=== PATIENT | male | born 1935 | race Caucasian/White ===

== ENCOUNTER 2016-06-27 14:52 | Inpatient (IN) | payer OTHER ==
--- NOTE | ~2016-06-27 | CR72 ---
[facility] A Service of [facility] RADIOLOGY TEXT RESULTS PATIENT: YADI PADILLA LOCATION: [facility] 473-01 : 33 UNIT #: [id number] AGE: [address]: Sana Chou MD SEX: M ORDER DR: [id number] [facility] [address]. [place], [place] [address] [id number] E MR#: [id number] Acc #: [id number] NAME: YADI PADILLA. : 1935 SEX: M STUDY DATE/TIME: 06/27/2016 16:08 UNIT: [facility] ROOM: STUDY DESCRIPTION: CR Chest Single View Portable Attending Physician: Tian Patterson M.D. Ordering Physician: Tian Patterson M.D. Primary Care Physician: Calvin Loco M.D. MEDICAL IMAGING REPORT This report is preliminary unless electronic signature is present EXAM AP portable chest. DATE 06/27/2016 HISTORY 80-year-old male with syncope and tachycardia today. History of colon cancer and atrial fibrillation. Hypertension. COMPARISON PA and lateral chest, 11/05/2012. FINDINGS There is a moderate cardiac enlargement which appears stable. Pulmonary vascular distribution is within normal limits. No acute airspace disease is identified. No pleural effusion or pneumothorax. Surgical changes of the right humerus. Mild midthoracic dextroscoliotic curvature. Chronic-appearing flattening and/or resorption of the humeral head with heterotopic ossification of the inferior margin of the glenohumeral joint. IMPRESSION 1. Stable moderate cardiac enlargement. No acute chest findings. 2. Chronic-appearing flattening or resorption of the humeral head. ORIF changes of the right humerus. 3. Mild mid thoracic dextroscoliosis. Dictated by... Cora Flynn M.D. THIS IS AN ELECTRONICALLY VERIFIED REPORT [facility] A Service of [facility] RADIOLOGY TEXT RESULTS PATIENT: YADI PADILLA LOCATION: [facility] 473-01 : 33 UNIT #: [id number] AGE: [address]: Sana Chou MD SEX: M ORDER DR: Cora Flynn M.D. at 06/29/2016 7:14 AM ROGER/amy TD: 06/27/2016 17:27 JOB #: [id number] MEDICAL IMAGING REPORT Page 1 of 1 COPY
--- NOTE | ~2016-06-27 | HP ---
Unit #: [id number] #: [id number] Patient: YADI PADILLA [id number] [address] [place], [place] [address] [id number] E MR#: [id number] NAME: YADI PADILLA ROOM: Age: 80 Sex: M Admission Date: 06/27/2016 : 1935 Attending Physician: Tian Patterson M.D. Primary Care Physician: Calvin Loco M.D. HISTORY AND PHYSICAL CHIEF COMPLAINT Fall. HISTORY OF PRESENT ILLNESS The patient is an 80-year-old male with a history of a hypertension, colon cancer status post resection and afib on anticoagulation, brought to the emergency room status post fall. The patient lives with his who has a history of dementia. The patient last spoke with the family last night at 6:00 p.m. and the patient was found on the floor at the kitchen this afternoon at 1:15 p.m. The patient was disoriented and was talking about the (1) . The patient was also found to have blood around the mouth. The patient was brought to the emergency room for further evaluation. The patient does not remember the events. PAST MEDICAL HISTORY History of a hypertension, atrial fibrillation, hyperlipidemia, colon cancer. PAST SURGICAL HISTORY He has had a partial colectomy and status post open reduction and internal fixation of the right proximal humerus fracture. MEDICATIONS He is on home Coumadin, niacin, metoprolol, fish oil. ALLERGIES No known drug allergies. SOCIAL HISTORY The patient drinks alcohol two to four times a month and has no tobacco usage, retired. FAMILY HISTORY Positive for hypertension and cancer. REVIEW OF SYSTEMS Fourteen-point review of symptoms performed and only pertinent positive findings described above, remaining are negative. PHYSICAL EXAMINATION GENERAL APPEARANCE: On examination the patient is lying on a bed not in acute distress. VITAL SIGNS: Temperature 97.9, pulse 127, respirations 17, blood pressure 115/65, sating 98% at room air. Unit #: [id number] #: [id number] Patient: YADI PADILLA HEENT: Head atraumatic and normocephalic. Pupils equal, round and reacting to light and accommodation. Extraocular movements are intact. Dry mucous membranes. NECK: Supple. LUNGS: Decreased air entry at the bases. HEART: Regular rate and rhythm. ABDOMEN: Soft, positive bowel sounds. EXTREMITIES: Patient has multiple bruises on the left upper extremity and right upper extremity and on the back. NEUROLOGIC: Alert, awake, oriented and positive for confusion. DIAGNOSTIC STUDIES IMAGING: CT of the head shows no acute intracranial findings. Chest x-ray shows no acute findings. LABORATORY DATA: Glucose 195, BUN 22, creatinine 1.7, sodium 139, potassium 2.6, chloride 105, bicarb 24, calcium 8.4, albumin 3.3, direct bilirubin 0.4, AST 59, ALT 30, alkaline phosphatase 38, CK is 1807, lactic acid is 2, PT is 103, INR is 9.1, PTT is 54.9, WBC 16.5, hemoglobin 10.3, hematocrit 29.6, platelets 177, neutrophils 89% and UA is pending. ASSESSMENT 1. Status post fall. 2. Coumadin toxicity. 3. Rhabdomyolysis. 4. Hypokalemia. PLAN Plan to admit the patient as an inpatient with the telemetry. Patient will receive the IV fluids with a sepsis protocol and initiate the sepsis protocol with the blood cultures and repeat the lactic acid. Follow the UA to initiate the antibiotics if it is positive for the infection. Replace the potassium per protocol and GI has already been seeing the patient and recommends the Protonix 40 b.i.d. and further recommendations will follow as more lab results are available. Dictated by Nancy Buitrago TD: 06/27/2016 18:44 JOB #: [id number] Unit #: [id number] #: [id number] Patient: YADI PADILLA HISTORY AND PHYSICAL Page 1 of 1 X X HISTORY AND PHYSICAL
--- NOTE | ~2016-06-27 | CT71 ---
[facility] A Service of [facility] RADIOLOGY TEXT RESULTS PATIENT: YADI PADILLA LOCATION: [facility] : 33 UNIT #: [id number] AGE: [address]: MITCHELL COVINGTON MD SEX: M ORDER DR: [id number] [address] [address] [id number] E MR#: [id number] #: [id number] NAME: YADI PADILLA. : 1935 SEX: M STUDY DATE/TIME: 06/27/2016 16:39 UNIT: [facility] ROOM: STUDY DESCRIPTION: CT Head Wo Contrast Attending Physician: Tian Patterson M.D. Ordering Physician: Tian Patterson M.D. Primary Care Physician: Calvin Loco M.D. MEDICAL IMAGING REPORT This report is preliminary unless electronic signature is present EXAM CT head 06/27/2016 INDICATIONS Altered mental status. Weakness. Found down. Confusion. TECHNIQUE CT head without contrast. This CT exam was performed with one or more of the following radiation dose reduction techniques: automatic exposure control, adjustment of mA and/or kV according to patient size, and iterative reconstruction. COMPARISON None available. FINDINGS There is no acute intracranial hemorrhage, mass lesion, or acute infarct. There is generalized atrophy and chronic small vessel changes. The ventricles and basilar cisterns are within normal limits. No extraaxial collections. No acute osseous abnormalities. IMPRESSION 1. No acute intracranial findings. 2. Atrophy and chronic small vessel changes. Dictated by... Laci Mccarthy M.D. THIS IS AN ELECTRONICALLY VERIFIED REPORT Laci Mccarthy M.D. at 06/27/2016 9:45 PM [facility] A Service of [facility] RADIOLOGY TEXT RESULTS PATIENT: YADI PADILLA LOCATION: [facility] : 33 UNIT #: [id number] AGE: [address]: MITCHELL COVINGTON MD SEX: M ORDER DR: Tasha TD: 06/27/2016 18:01 JOB #: [id number] MEDICAL IMAGING REPORT Page 1 of 1 COPY
--- NOTE | ~2016-06-27 | CO ---
Unit #: [id number] #: [id number] Patient: YADI SHIN [id number] [address] [place], [place] [address] [id number] I MR#: [id number] NAME: YADI SHIN ROOM: [facility] Age: 80 Sex: M Admission Date: 06/27/2016 : 1935 Attending Physician: Sana Chou M.D. Primary Care Physician: Calvin Loco M.D. Consultation Date: 06/29/2016 CONSULTATION REPORT PRIMARY CARE PHYSICIAN Calvin Loco M.D. REASON FOR CONSULTATION Leukocytosis, please evaluate. HISTORY OF PRESENT ILLNESS Mr. Yadi Shin is [id number] with a history of hypertension, on long-term anticoagulation with warfarin, because of atrial fibrillation, who was found down at home. He apparently fell hitting his head on concrete and spent the night on the floor before his house has to be broken in to find him on the floor and bring him into the emergency room. His has advanced dementia and he was the primary caregiver and apparently had padlocked the front and back doors. Mr. Shin was disoriented at the time of admission, and again remains somewhat confused and unable to remember the events. 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 PAST SURGICAL HISTORY Partial colectomy and proximal humeral fracture. ALLERGIES He has no known medication allergies. FAMILY HISTORY According to him, no history of blood disorders. SOCIAL HISTORY Drinks alcohol occasionally. He is . Lives with his , who has Alzheimer dementia. Does not smoke. REVIEW OF SYSTEMS A 14-point review of systems is attempted, but incomplete, because of the patient's mild effusion. EYES: Negative. EARS, NOSE, MOUTH, AND THROAT: Negative. CARDIOVASCULAR: Negative. RESPIRATORY: Negative. GASTROINTESTINAL: Negative. GENITOURINARY: With dysuria and urinary frequency. Unit #: [id number] #: [id number] Patient: YADI SHIN NEUROLOGIC: Has forgotten events surrounding his fall. PSYCHIATRIC: Negative. ENDOCRINE: Negative. ALLERGIC/LYMPHATIC: Negative. SKIN: Bruising of both arms which he attributes to his fall. PHYSICAL EXAMINATION GENERAL: He is a pleasant elderly man, lying in bed, in no distress. Awake, alert, and oriented x3. VITAL SIGNS: Temperature 97.8, pulse rate 96, respiratory rate is 18, blood pressure 107/66, O2 saturation 94% on room air. HEENT: Shows pupils are equal and reactive well to light. No pallor or icterus. Mucous membranes are moist. NECK: Without adenopathy, JVD, or thyromegaly. CARDIOVASCULAR: First and second heart sounds are heard and regular. No murmurs, gallops, or rubs. LUNGS: Chest expansion is symmetric. Bilateral equal air entry with normal breath sounds. ABDOMEN: Soft and nontender. Bowel sounds are present. Lower midline incision is noted. EXTREMITIES: Warm with good pulses. He has extensive bruising of both arms probably related to his fall. NEUROLOGIC: He is awake, alert, oriented x3 without any focal findings. SKIN: Bruises as discussed. PSYCHIATRIC: Normal affect. DIAGNOSTIC STUDIES LABORATORY RESULTS: White count 17.2, hemoglobin is 8.7, platelet count is 147,000. MCV is normal at 94.9. Protime is 16.1, INR 1.5. UA shows nitrites are negative. Protein is trace. There is 2+ blood with 25 to 50 rbc's per high-power field and 2 to 5 wbc's. Blood cultures negative. Lactic acid was 2 at the time of admission and is now 1.5. Iron is 35, TIBC is 188, percent saturation is 19%. Vitamin B12 is 874. Hemoglobin A1c was 5.7. Basic metabolic panel on admission showed a potassium of 2.6, BUN is 22, creatinine is 1.7, eGFR of 36.8, total protein is 6.1 with albumin of 3.3, bilirubin is 0.4. IMAGING STUDIES: Chest x-ray, one view, shows stable moderate cardiac enlargement. ASSESSMENT AND PLAN Mr. Yadi Shin is an 80 years old with a history of chronic atrial fibrillation, on warfarin admitted after a fall at home. He now has leukocytosis, moderately severe normocytic anemia without any clear evidence of recent blood loss. He is scheduled for an endoscopy later today. His UA is slightly abnormal and urine cultures has not been done given his some confusion. I would recommend a urine culture which may also explain his leukocytosis. RECOMMENDATION 1. Completion of anemia workup with retic count, LDH, haptoglobin level, and a ferritin level. 2. Monitor CBCs with differential. We will review the peripheral smear. 3. Urine culture. 4. Will await the results of endoscopy. 5. We will repeat a CMP. Thank you for allowing me to participate in his care. Unit #: [id number] #: [id number] Patient: YADI SHIN Dictated by... Nancy Goel/ivett TD: 07/01/2016 05:00 JOB #: [id number] CONSULTATION REPORT Page 1 of 1 X John Morales MD X CONSULTATION REPORT
--- NOTE | ~2016-06-27 | EKG ---
PATIENT: YADI PADILLA UNIT #: [id number] Ventricular Rate: 118 BPM Atrial Rate: 129 BPM QRS Duration: 100 ms Q-T Interval: 326 ms QTC Calculation(Bezet): 456 ms Calculated R [place]: -8 degrees Calculated T [place]: -152 degrees Diagnosis Line: Atrial fibrillation with rapid ventricular Diagnosis Line: response with premature ventricular or aberrantly Diagnosis Line: conducted complexes Diagnosis Line: ST and T wave abnormality, consider lateral ischemia Diagnosis Line: Abnormal ECG Diagnosis Line: When compared with ECG of 12-NOV-2012 09:23, Diagnosis Line: T wave inversion now evident in Anterior leads Diagnosis Line: Confirmed by TONE CHAMBERS MD ([id number]) on 06/28/2016 Diagnosis Line: 10:38:05 AM INTERPRETING MD: TRISH JOSEPH
--- NOTE | ~2016-06-27 | DS ---
Unit #: [id number] #: [id number] Patient: YADI SHIN [id number] [facility]. [place], [place] [address] [id number] I MR#: [id number] NAME: YADI SHIN. ROOM: 473 Age: 80 Sex: M Admission Date: 06/27/2016 : 1935 Discharge Date: 06/30/2016 Attending Physician: Sana Chou M.D. Primary Care Physician: Calvin Loco M.D. DISCHARGE SUMMARY PRINCIPAL DIAGNOSES 1. Coumadin toxicity. 2. Severe candidal esophagitis. 3. Status post fall with severe deconditioning. 4. Acute blood loss anemia, likely secondary to patient's esophagitis in combination with extensive bruising with Coumadin toxicity. 5. Hypokalemia. 6. Toxic metabolic encephalopathy. 7. Mild rhabdomyolysis. 8. Acute kidney injury, prerenal in combination with rhabdomyolysis. Discharge creatinine 1. 9. 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 10. Iron deficiency anemia. 11. Chronic atrial fibrillation, rate controlled and maintained on anticoagulation. 12. Buttock pressure ulcer present upon admission. 13. Memory loss, moderate. 14. Obesity. 15. Moderate protein malnutrition. 16. Hypertension. 17. Severe deconditioning. CONSULTANTS 1. Dr. Yin, gastroenterology. 2. Dr. Morales, oncology. PROCEDURE EGD on June 29, 2016, with severe Aurelia esophagitis. Normal stomach and mild duodenitis noted. DIAGNOSTIC STUDIES IMAGING: Chest x-ray on June 27, 2016, with cardiac enlargement, flattening, and reabsorption of humeral head on the right noted. CT of the head without contrast on June 27, 2016, with atrophy and chronic small vessel change. X-ray of left forearm on June 27, 2016, with swelling and osteoarthritis. CLINICAL HISTORY AND HOSPITAL COURSE Mr. Shin is an 80-year-old, male brought to the emergency department by his family after being found down in his kitchen at home confused. Please refer to H and P for further details. In the emergency Unit #: [id number] #: [id number] Patient: YADI SHIN department, patient underwent CT scan of the head, which was unremarkable for any acute findings. However, he was found to have a leukocytosis upon presentation and creatinine was elevated at 1.7. Patient was subsequently admitted. In regards to patient's elevated creatinine, he was placed on IV fluids and, on day of discharge, creatinine is now down to 1. Encouraged p.o. intake. Workup for patient's confusion was initially negative for any source of infection. Leukocytosis continued to worsen despite empiric antibiotics given pending cultures, which, again, ultimately were negative. Dr. Morales was consulted. However, patient underwent EGD, as outlined below. Leukocytosis is now resolved after being placed on nystatin. When patient presented to the emergency department, he had blood present around his mouth, which was concerning for, perhaps, trauma versus GI bleed versus other. Dr. Yin was consulted and, ultimately, patient underwent EGD with findings of severe confluent esophagitis. He has been placed on nystatin and, since that time, he has had improvement in his swallowing and leukocytosis has resolved. I did discuss with patient's daughter this at home and he had been choking at home and avoiding eating due to pain. Again, will treat as outlined below. Patient was found to be Coumadin toxic upon presentation with an INR greater than 9. Coumadin was held and INR at this time is now subtherapeutic at 1.3. I am going to place him on bridging Lovenox in addition to Coumadin and Lovenox may be discontinued when INR is greater than or equal to 2. Patient was also found to be significantly hypokalemic at home. He is on HCTZ and, perhaps, this is the culprit. I will maintain him on a low-dose potassium supplement upon discharge and potassium can be followed up. Patient has also been maintained on his losartan/hydrochlorothiazide during hospitalization with blood pressures running in the 90s. I am going to cut the pill in half and blood pressure can be followed up at rehab. Patient was also found to have a pressure ulcer present upon admission and this was seen by wound care with instructions for care as outlined below. Patient is significantly weak and will be discharged to rehab later today. I will also note patient was significantly disoriented throughout hospitalization and did not know place or date or year. I have discussed this with patient's daughter and she does admit he has some short-term memory loss at home. However, I suspect his memory loss is perhaps more advanced than noted by family and this should further be discussed at rehab prior to discharge. DISCHARGE CONDITION Stable. DISCHARGE STATUS Discharged to (1) . DISCHARGE MEDICATIONS Unit #: [id number] #: [id number] Patient: YADI SHIN 1. Tylenol 500 mg p.o. daily. 2. Losartan HCTZ 100/25 mg 1/2 tablet p.o. daily. 3. Coumadin 3 mg p.o. daily with goal INR of 2-3. 4. Nystatin swish and swallow 5 mL p.o. t.i.d. for 10 days. 5. Lovenox 100 mg subcu. q.12 hours to stop when INR greater than or equal to 2. 6. Metoprolol tartrate 25 mg daily. 7. Ferrous gluconate 324 mg daily. 8. [place] 3 1000 mg 2 tablets b.i.d. 9. Protonix 40 mg b.i.d. 10. Klor-Con 20 mg p.o. daily. 11. Niacin ER 1000 mg b.i.d. DISCHARGE INSTRUCTIONS 1. Patient was instructed to follow a heart healthy diet. He should follow a soft diet for the next several days until esophagitis has improved. 2. He can increase activity as tolerated under the care of PT and OT. 3. In regards to his sacral wound, he should be up in chair no longer than 30 minutes and should be out of bed with all meals. 4. Wounds should be cleansed with foam cleanser and apply Mepitel One to the right buttock wound b.i.d. and p.r.n. It should be cut to fit and waffle cushion to chair when out of bed. 5. FOLLOWUP: A. Patient will follow up with Dr. Yin in approximately four weeks. B. Patient will follow up with his primary care provider, Dr. Loco, upon discharge from rehab. TIME SPENT ON DISCHARGE Thirty-seven minutes. Dictated by... Sana Chou M.D. TORIE/ruddy TD: 06/30/2016 09:24 JOB #: [id number] DISCHARGE SUMMARY Page 1 of 1 X Sana Chou MD X DISCHARGE SUMMARY
--- NOTE | ~2016-06-27 | CO ---
Unit #: [id number] #: [id number] Patient: YADI SHIN [id number] [facility]. [place], [place] [address] [id number] I MR#: [id number] NAME: YADI SHIN. ROOM: 473 Age: 80 Sex: M Admission Date: 06/27/2016 : 1935 Attending Physician: Carlos Gallardo M.D. Primary Care Physician: Calvin Loco M.D. Consultation Date: 06/27/2016 CONSULTATION REPORT REASON FOR CONSULTATION Possible hematemesis. HISTORY OF PRESENTING ILLNESS Mr. Shin is an 80-year-old gentleman. He was found down after blacking out at his home. Not sure of the length of the time he was out. When he was found, he had some blood around his mouth, possible hematemesis. Patient denies any history of ulcers or previous scoping. At this time he is awake and alert, seems very weak however. He denies any abdominal pain. He does have dysphagia to solids off and on and has choked on food several times also. Bowel movements have been normal, without any black stool or bleeding. He does have a history of colon cancer, had partial colon resection about 10 years ago, no details available. He has not had any surveillance colonoscopy afterwards. PAST MEDICAL HISTORY Past medical history is significant for history of coronary artery disease, atrial fibrillation on chronic anticoagulation, colon cancer status post colectomy. HOME MEDICATIONS Medications at home included Coumadin, fish oil, niacin and metoprolol. SOCIAL HISTORY Nonsmoker, does drink alcohol socially. REVIEW OF SYSTEMS Complete 10-point review of systems is done which is unremarkable other than as mentioned above. PHYSICAL EXAMINATION VITAL SIGNS: Stable. Temperature 97.9, pulse 127, respirations 17, blood pressure 115/65. HEENT: Pupils equally round and reactive. Sclerae anicteric. Oral mucosa moist. NECK: No JVD. No lymphadenopathy. CHEST: A few scattered rhonchi. CARDIOVASCULAR SYSTEM: Regular rate and rhythm. No murmurs. ABDOMEN: Soft, nontender and nondistended. EXTREMITIES: Without cyanosis, clubbing or edema. NEUROLOC: Neurologically intact. SKIN: Warm and dry. Does have a decub ulcer. Unit #: [id number] #: [id number] Patient: YADI SHIN DIAGNOSTIC STUDIES LABORATORY: Today hemoglobin of 10.3, other labs are pending at this time. ASSESSMENT AND PLAN 1. Patient with possible hematemesis and chronic dysphagia: Will need an upper endoscopy once stable from cardiopulmonary status. Will continue with PPI for now. 2. Anemia, no baseline available at this time. 3. Patient with a personal history of colon cancer, status post colectomy for over 10 years, has not had a surveillance colonoscopy: At this time will consider doing colonoscopy for evaluation in near future. Thank you, Dr. Gallardo, for this interesting consult. We will follow along. Dictated by... Nancy De Oliveira/danielle TD: 06/27/2016 22:59 JOB #: [id number] CONSULTATION REPORT Page 1 of 1 X Jose Armando Yin MD X CONSULTATION REPORT
--- NOTE | ~2016-06-27 | CR132 ---
[facility] A Service of [facility] RADIOLOGY TEXT RESULTS PATIENT: YADI PADILLA LOCATION: [facility] [id number] : 33 UNIT #: [id number] AGE: [address]: MITCHELL COVINGTON MD SEX: M ORDER DR: [id number] [facility] [address] [facility]. [place], [place] [address] [id number] E MR#: [id number] Acc #: [id number] NAME: YADI PADILLA. : 1935 SEX: M STUDY DATE/TIME: 06/27/2016 17:55 UNIT: [facility] ROOM: STUDY DESCRIPTION: CR Forearm 2 View Lt Attending Physician: Tian Patterson M.D. Ordering Physician: Ed Shaq Gutierrez M.D. Primary Care Physician: Calvin Loco M.D. MEDICAL IMAGING REPORT This report is preliminary unless electronic signature is present EXAM Left forearm. INDICATIONS Left forearm pain and swelling status post fall. FINDINGS 2 views of the left forearm without comparison. There is no acute fracture or dislocation. There is some soft tissue swelling over the midportion of the forearm. There is some arthritis in the wrist. Alignment at the elbow is anatomic. IMPRESSION 1. Mild soft tissue swelling over the mid forearm. 2. 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 Dictated by... Laci Mccarthy M.D. THIS IS AN ELECTRONICALLY VERIFIED REPORT Laci Mccarthy M.D. at 06/27/2016 9:46 PM ELIAN/maral TD: 06/27/2016 19:12 JOB #: [id number] MEDICAL IMAGING REPORT Page 1 of 1 COPY
--- NOTE | ~2016-06-27 | OR ---
Unit #: [id number] #: [id number] Patient: YADI PADILLA [id number] [address] [place], [place] [address] [id number] MR#: [id number] NAME: YADI PADILLA. ROOM: 473 Date of Procedure: 06/29/2016 Admission Date: 06/27/2016 Surgeon: Jose Armando Yin M.D. : 1935 Attending Physician: Sana Chou M.D. Primary Care Physician: Calvin Loco M.D. OPERATIVE REPORT PROCEDURE PERFORMED Esophagogastroduodenoscopy with biopsies. INDICATIONS FOR PROCEDURE The patient with significant dysphagia, also with drop in hemoglobin over the last few days significantly. MEDICATIONS Monitored anesthesia. POSTOPERATIVE FINDINGS 1. Severe Aurelia esophagitis. Biopsies taken. 2. Normal stomach. 3. Mild duodenitis. PLAN Continue PPI therapy. Start nystatin. Follow up on the pathology report. DESCRIPTION OF PROCEDURE The patient was explained of the procedure, risks, and benefits along with risks and benefits of anesthesia. He was brought to the endoscopy room. Propofol anesthesia was given. Bite block was placed. The scope was passed down the mouth into the esophagus, stomach, duodenum, and distal duodenum. Findings as described. Biopsies taken in the esophagus. Gently, the scope was pulled out. He tolerated it well. Dictated by... Nancy De Oliveira/ivett TD: 06/29/2016 23:01 JOB #: [id number] Unit #: [id number] #: [id number] Patient: YADI PADILLA OPERATIVE REPORT Page 1 of 1 X Jose Armando Yin MD X PROCEDURE OPERATIVE NOTE
[~2016-06-27 14:52] MED LIST: DOCU SOFT100 M1 PO; LORTAB 5/500 TA1 TA2 PO; LOSARTAN-HCTZ1 EAC3 PO; LOVAZA1 G PO; METOPROLOL SUCC50 MG PO; NIASPAN ER PO; OXYCODONE15 MG PO; WARFARIN PO
[2016-06-27 16:15] LABS: BASOPHIL% 0.2 % (0-2.5); HEMATOCRIT 29.6 % (38.0-50.0); HEMOGLOBIN 10.3 gm/dL (13.0-16.0); LYMPHOCYTE# 0.8 X10e3 (1.0-3.5); LYMPHOCYTE% 5.1 % (17.0-45.0); MEAN CELL VOLUME 92.5 FL (83-96); MEAN CORPUSCULAR HEMOGLOBIN 32.2 PG (28-34); MEAN CORPUSCULAR HGB CONC 34.8 g/dL (30-36); MEAN PLATELET VOLUME 7.1 FL (6.5-11.5); MONOCYTE# 0.9 X10e3 (0-1.0); MONOCYTE% 5.7 % (3.0-12.0); NEUTROPHIL# 14.7 X10e3 (1.5-7.1); PLATELET COUNT 177 X10e3 (140-420); RED CELL DISTRIBUTION WIDTH 13.2 % (11.0-15.5); WHITE BLOOD COUNT 16.5 X10e3 (4.0-10.5)
[2016-06-27 16:16] LABS: DIFF IND YES
[2016-06-27 16:31] LABS: PARTIAL THROMBOPLASTIN TIME 54.9 SECONDS (23.5-31.3)
[2016-06-27 16:39] LABS: PLATELET ESTIMATE NORMAL (NORMAL); RBC NORMAL YES
[2016-06-27 16:41] LABS: ALBUMIN SERUM 3.3 g/dL (3.5-5.0); BILIRUBIN, DIRECT 0.4 mg/dL (0.0-0.2); BILIRUBIN,TOTAL 1.4 mg/dL (0.2-2.0); BUN/CREATININE RATIO 12.94; CALCIUM SERUM 8.4 mg/dL (8.4-10.2); CREATININE SERUM 1.7 mg/dL (0.6-1.4); GLOM FILT RATE Estimated 36.8 mL/min (>60); PROTEIN TOTAL SERUM 6.1 g/dL (6.0-8.3)
[2016-06-27 17:08] LABS: INR 9.1
[2016-06-27 17:16] LABS: POTASSIUM 2.6 mmol/L (3.5-5.1)
[2016-06-27] MEDS ORDERED: PATIENT'S PHARMACY (17:25)
[2016-06-27] MEDS ORDERED: OMEGA 3 1,0001 EACH PO (17:30)
[2016-06-27] MEDS ORDERED: NIACIN ER1000 MG PO (17:30)
[2016-06-27] MEDS ORDERED: LOSARTAN-HCTZ1 EAC1 PO (17:30)
[2016-06-27] MEDS ORDERED: COUMADIN3 MG PO (17:31)
[2016-06-27] MEDS ORDERED: COUMADIN4 MG PO (17:31)
[2016-06-27] MEDS ORDERED: METOPROLOL TAR25 MG PO (17:32)
[2016-06-27] MEDS ORDERED: TYLENOL EXTRA500 M1 PO (17:38)
[2016-06-27 18:26] LABS: POC - CKMB 3.9 ng/mL (0.0-7.9); POC - TROPONIN <0.05 ng/mL (<=0.05)
[2016-06-28 03:39] LABS: BASOPHIL% 0.1 % (0-2.5); DIFF IND NO; HEMATOCRIT 28.5 % (38.0-50.0); HEMOGLOBIN 9.8 gm/dL (13.0-16.0); LYMPHOCYTE# 1.1 X10e3 (1.0-3.5); LYMPHOCYTE% 7.2 % (17.0-45.0); MEAN CORPUSCULAR HEMOGLOBIN 32.2 PG (28-34); MEAN CORPUSCULAR HGB CONC 34.3 g/dL (30-36); MEAN PLATELET VOLUME 7.3 FL (6.5-11.5); MONOCYTE# 0.8 X10e3 (0-1.0); MONOCYTE% 5.3 % (3.0-12.0); NEUTROPHIL# 13.2 X10e3 (1.5-7.1); NEUTROPHIL% 87.4 % (40-75); PLATELET COUNT 174 X10e3 (140-420); RED BLOOD COUNT 3.03 X10e (3.90-5.60); RED CELL DISTRIBUTION WIDTH 13.6 % (11.0-15.5); WHITE BLOOD COUNT 15.1 X10e3 (4.0-10.5)
[2016-06-28 04:07] LABS: INR 4.8
[2016-06-28 04:12] LABS: ALBUMIN SERUM 3.1 g/dL (3.5-5.0); BILIRUBIN,TOTAL 1.3 mg/dL (0.2-2.0); BUN/CREATININE RATIO 17.69; CREATININE SERUM 1.3 mg/dL (0.6-1.4); GLOM FILT RATE Estimated 50.8 mL/min (>60); MAGNESIUM 1.4 mg/dL (1.6-3.0); PROTEIN TOTAL SERUM 5.5 g/dL (6.0-8.3)
[2016-06-28 04:13] LABS: POTASSIUM 2.7 mmol/L (3.5-5.1)
[2016-06-28 08:40] LABS: IRON SERUM 35 ug/dL (45-182); TOTAL IRON BINDING CAPACITY 188 ug/dL (252-460); TRANSFERRIN 134 mg/dL (180-329); TRANSFERRIN SATURATION 19 % (20-50)
[2016-06-28 12:32] LABS: URINE SOURCE CLEAN CATCH
[2016-06-28 12:42] LABS: URINE APPEARANCE CLEAR; URINE BLOOD 2+ (NEG); URINE COLOR DK YELLOW; URINE GLUCOSE NEG (NEG); URINE KETONE NEG (NEG); URINE LEUKOCYTE ESTERASE NEG (NEG); URINE NITRATE NEG (NEG); URINE PROTEIN TRACE (NEG); URINE SPECIFIC GRAVITY 1.022 (1.003-1.035)
[2016-06-28 12:44] LABS: URBCS1 AUWI 25-50 /[HPF] (0-2); URINE BACTERIA AUWI NEG (NEGATIVE)
[2016-06-28 12:57] LABS: CULTURE INDICATED? NO; URINE BILIRUBIN NEG (NEG)
[2016-06-28 13:00] LABS: URINE SQUAMOUS EPITHELIAL CELL OCCAS /[HPF]
[2016-06-29 03:20] LABS: HEMOGLOBIN 8.7 gm/dL (13.0-16.0); MEAN CELL VOLUME 94.9 FL (83-96); MEAN CORPUSCULAR HGB CONC 33.7 g/dL (30-36); MEAN PLATELET VOLUME 7.7 FL (6.5-11.5); RED BLOOD COUNT 2.73 X10e (3.90-5.60); RED CELL DISTRIBUTION WIDTH 13.4 % (11.0-15.5); WHITE BLOOD COUNT 17.2 X10e3 (4.0-10.5)
[2016-06-29 03:23] LABS: INR 1.5
[2016-06-29 03:43] LABS: CALCIUM SERUM 8.3 mg/dL (8.4-10.2); CREATININE SERUM 1.3 mg/dL (0.6-1.4); GLOM FILT RATE Estimated 50.8 mL/min (>60); POTASSIUM 3.2 mmol/L (3.5-5.1)
[2016-06-29 03:45] LABS: PROTHROMBIN TIME (PATIENT) 16.1 SECONDS (9.6-11.5)
[2016-06-29 14:02] LABS: ALBUMIN SERUM 2.8 g/dL (3.5-5.0); BILIRUBIN,TOTAL 1.1 mg/dL (0.2-2.0); BUN/CREATININE RATIO 20.9; CALCIUM SERUM 8.5 mg/dL (8.4-10.2); CREATININE SERUM 1.1 mg/dL (0.6-1.4); GLOM FILT RATE Estimated 62.2 mL/min (>60); POTASSIUM 3.9 mmol/L (3.5-5.1); PROTEIN TOTAL SERUM 5.4 g/dL (6.0-8.3)
[2016-06-30 03:39] LABS: INR 1.3
[2016-06-30 03:42] LABS: BASOPHIL% 0.2 % (0-2.5); EOSINOPHIL# 0.1 X10e3 (0-0.7); EOSINOPHIL% 0.6 % (0.0-7.0); HEMATOCRIT 23.6 % (38.0-50.0); HEMOGLOBIN 8.1 gm/dL (13.0-16.0); LYMPHOCYTE# 1.4 X10e3 (1.0-3.5); LYMPHOCYTE% 13.9 % (17.0-45.0); MEAN CELL VOLUME 94.5 FL (83-96); MEAN CORPUSCULAR HEMOGLOBIN 32.6 PG (28-34); MEAN CORPUSCULAR HGB CONC 34.6 g/dL (30-36); MONOCYTE# 0.7 X10e3 (0-1.0); MONOCYTE% 6.8 % (3.0-12.0); NEUTROPHIL# 7.7 X10e3 (1.5-7.1); NEUTROPHIL% 78.5 % (40-75); PLATELET COUNT 139 X10e3 (140-420); RED BLOOD COUNT 2.49 X10e (3.90-5.60); RED CELL DISTRIBUTION WIDTH 13.5 % (11.0-15.5); RETICULOCYTE 2.7 % (0.5-2.8); WHITE BLOOD COUNT 9.8 X10e3 (4.0-10.5)
[2016-06-30 03:47] LABS: DIFF IND NO
[2016-06-30 03:51] LABS: ALBUMIN SERUM 2.7 g/dL (3.5-5.0); BILIRUBIN,TOTAL 0.8 mg/dL (0.2-2.0); CALCIUM SERUM 8.1 mg/dL (8.4-10.2); GLOM FILT RATE Estimated 69.8 mL/min (>60); MAGNESIUM 1.8 mg/dL (1.6-3.0); POTASSIUM 3.1 mmol/L (3.5-5.1); PROTEIN TOTAL SERUM 5.2 g/dL (6.0-8.3)
== END 2016-06-30 11:28 | DRG 368 ==
LOC: CED 14:52 → CEDOF 17:20 → C4C 17:20 → CED 17:40 → CEDOF 17:40 → C4C 17:40 → CEDOF 17:40 → C4C 06-28 08:48
PROVIDERS: Emergency Medicine; Internal Medicine; Internal Medicine Hematology & Oncology
PROC: 05HD33Z Insertion of Infusion Device into Right Cephalic Vein, Percutaneous Approach (ICD-10-PCS; 2016-06-28)
PROC: B54MZZA Ultrasonography of Right Upper Extremity Veins, Guidance (ICD-10-PCS; 2016-06-28)
PROC: 0DB58ZX Excision of Esophagus, Via Natural or Artificial Opening Endoscopic, Diagnostic (ICD-10-PCS; principal; 2016-06-29 15:51)
DX: B37.81 Candidal esophagitis (principal); G92 Toxic encephalopathy; N17.9 Acute kidney failure, unspecified; L89.312 Pressure ulcer of right buttock, stage 2; E44.0 Moderate protein-calorie malnutrition; M62.82 Rhabdomyolysis; E88.81 Metabolic syndrome and other insulin resistance; F03.90 Unspecified dementia, unspecified severity, without behavioral disturbance, psychotic disturbance, mood disturbance, and anxiety; D62 Acute posthemorrhagic anemia; T45.515A Adverse effect of anticoagulants, initial encounter; Y92.009 Unspecified place in unspecified non-institutional (private) residence as the place of occurrence of the external cause; Z91.81 History of falling; E87.6 Hypokalemia; D50.9 Iron deficiency anemia, unspecified; I48.2 Chronic atrial fibrillation; Z79.01 Long term (current) use of anticoagulants; R41.3 Other amnesia; Z68.32 Body mass index [BMI] 32.0-32.9, adult; E66.9 Obesity, unspecified; I12.9 Hypertensive chronic kidney disease with stage 1 through stage 4 chronic kidney disease, or unspecified chronic kidney disease; N18.3 Chronic kidney disease, stage 3 (moderate); D72.829 Elevated white blood cell count, unspecified; E78.5 Hyperlipidemia, unspecified; R13.10 Dysphagia, unspecified; K29.80 Duodenitis without bleeding; R73.9 Hyperglycemia, unspecified; Z90.49 Acquired absence of other specified parts of digestive tract; Z85.038 Personal history of other malignant neoplasm of large intestine; Z82.49 Family history of ischemic heart disease and other diseases of the circulatory system; Z80.9 Family history of malignant neoplasm, unspecified
CPT/HCPCS: 36415; 70450; 71010; 73090; 80048; 80053; 80076; 81003; 82550; 82553; 82607; 82728; 83036; 83540; 83550; 83605; 83615; 83735; 84132; 84443; 84484; 85025; 85027; 85044; 85610; 85730; 87040; 87086; 88305; 88312; 92610; 93005; 96361; 96374; 97110; 97116; 97162; 97165; 97530; 97535; 99285; C9113; G8978-GP; G8979-GP; G8987-GO; G8988-GO; G8996-GN; G8997-GN; G8998-GN; J0696; J1650; J3430; J3475